=== PATIENT | female | born 1960 | race Caucasian/White ===

== ENCOUNTER → 2016-11-09 | Outpatient (CLI) | payer MEDICAID ==
--- NOTE | 2016-11-09 18:50 | US ---
Ultrasound Extremity Nonvascular Indication: Swelling in the left popliteal space. TECHNIQUE: Mtz-scale, color, and cine imaging of the left popliteal space. Findings: There is a small fluid collection deep to the popliteal vasculature that is inferior to th e knee joint. This appears to be along the lateral edge of the knee, not the medial edge. Some pain was noted with compression. The vessels are patent. A small collection measures 1.7 x 1.5 x 0.4 cm . Impression: Small fluid collection posterior to the knee deep to the popliteal vasculature likely re presents a small joint effusion.
== END ==
LOC: BRMIMAGING 12:46
PROVIDERS: ATTEND Internal Medicine
DX: M71.22 Synovial cyst of popliteal space [Baker], left knee (principal)
CPT/HCPCS: 76882-PO